=== PATIENT | female | born 1985 | race Caucasian/White ===

== ENCOUNTER 2016-08-28 17:45 | Emergency (ER) | payer MEDICAID, OTHER ==
[2016-08-28] MEDS ORDERED: SODIUM CHLORIDE 0.9% 1,000 ML ONE ×2 (18:35→21:24)
[2016-08-28] MEDS ORDERED: ONDANSETRON 4 MG VIAL ONE (20:09)
[2016-08-28] MEDS ORDERED: ACETAMINOPHEN 325 MG TAB ONE (21:24)
[2016-08-28] MEDS ORDERED: CEFTRIAXONE 1 GM VIAL ONE (21:59)
[2016-08-28] MEDS ORDERED: SODIUM CHLORIDE 0.9% 100 ML IV ONE (22:00)
== END 2016-08-28 23:14 | disposition home or self-care (01) ==
LOC: ER 17:45
DX: R50.9 Fever, unspecified (principal); N39.0 Urinary tract infection, site not specified; R11.2 Nausea with vomiting, unspecified
CPT/HCPCS: 36415; 71020; 80053; 81001; 83690; 84703; 85025; 87804; 96361; 96365; 96375